=== PATIENT | male | born 1985 | race Caucasian/White ===

== ENCOUNTER 2021-02-20 14:23 | Emergency (ER) | payer OTHER ==
[~2021-02-20] VITALS: Ht 182.9 cm; Wt 86.4 kg
[2021-02-20 14:33] VITALS: BP 160/96
[2021-02-20] MEDS ORDERED: LIDOcaine 1% W/epiNEPHrine 1:200,000 10ml vial IJ ONE (16:55)
[2021-02-20] MEDS ORDERED: HYDROcodone/acetaminophen 10/325mg tab PO ONE (16:55)
[2021-02-20] MEDS ORDERED: CLIN-97 PO (17:55)
[2021-02-20] MEDS ORDERED: HYDR-3965 PO (17:55)
== END 2021-02-20 18:36 | disposition home or self-care (01) ==
LOC: ER 14:25
DX: S62.521B Displaced fracture of distal phalanx of right thumb, initial encounter for open fracture (principal); W20.8XXA Other cause of strike by thrown, projected or falling object, initial encounter; Y93.89 Activity, other specified; Y92.89 Other specified places as the place of occurrence of the external cause; Y99.8 Other external cause status
CPT/HCPCS: 12001; 73130; 99283